=== PATIENT | male | born 1985 | race Caucasian/White ===

== ENCOUNTER 2021-05-06 14:25 | Emergency (ER) | payer BC, SELFPAY ==
[2021-05-06 14:40] VITALS: BP 134/76; PULSE 93; RESP 18; TEMP 37.1; O2SAT 99
--- NOTE | 2021-05-06 14:46 | ED.URI ---
HPI - URI/Sore Throat General Chief Complaint: Upper Respiratory Infection Stated Complaint: cold symptoms Time Seen by Provider: 05/06/21 14:50 Source: patient and RN notes reviewed Mode of arrival: ambulatory Limitations: no limitations History of Present Illness HPI Narrative: Lenin is a 36-year-old male patient who ambulated into the [facility]. Patient states he has a 6-day history of cough, sinus congestion, scratchy throat, and occasional ear pain. Patient has been taking Sudafed and Flonase at home. Patient did have a rapid Covid test last night which was negative. Related Data Allergies Allergy/AdvReac Type Severity Reaction Status Date / Time No Known Allergies Allergy Unknown Verified 05/06/21 14:54 Review of Systems Review of Systems: CONSTITUTIONAL: Denies body aches, fever, chills, or sweats. EYES: Denies visual changes, redness, or discharge. ENT: + rhinorrhea, + congestion, denies sore throat, + otalgia. CARDIOVASCULAR: Denies chest pain, palpitations, or edema. RESPIRATORY: Denies cough or dyspnea. GASTROINTESTINAL: Denies abdominal pain, nausea, vomiting, or diarrhea. GENITOURINARY: Denies dysuria or hematuria. SKIN: Denies rash, itching, or wounds. MUSCULOSKELETAL: Denies back pain, joint pain, or myalgia. NEUROLOGIC: Denies headache, numbness, tingling, or weakness. PSYCH: Denies depression or anxiety. All systems reviewed & are unremarkable except as noted in HPI and below PMFSH Social History Social History Smoking status: Never smoker Comments At time of signature, I have reviewed and agree with nursing past medical, surgical, social and family history unless otherwise noted. Please see nursing chart for further information. There is no relevant family history pertinent to the presenting complaint Exam Narrative: GENERAL: Well-appearing, well-nourished, and in no acute distress. HEAD: Normocephalic, atraumatic. EYES: EOMI. No redness or drainage. Conjunctivae normal. ENT: Mucous membranes pink and moist. Nasal membranes erythemic with clear drainage. Tympanic membranes are dull with moderate bulging. No erythema noted. Posterior pharynx is erythemic without edema and moderate postnasal drainage noted. No exudate nares clear. Uvula midline. NECK: Normal AROM. Supple. No lymphadenopathy. CHEST: No respiratory distress. Clear to auscultation. HEART: Regular rate and rhythm. No murmur appreciated. MUSCULOSKELETAL: No bony tenderness. EXTREMITIES: Normal range of motion. No edema. SKIN: Warm, dry, no rash. Capillary refill normal. Normal skin turgor. NEURO: No focal deficits. Alert and oriented x3. Gait steady. PSYCH: Normal affect. No signs of depression or anxiety. Course Vital Signs Vital signs: Vital Signs Temperature 37.1 C 05/06/21 14:40 Pulse Rate 93 05/06/21 14:40 Respiratory Rate 18 05/06/21 14:40 Blood Pressure 134/76 05/06/21 14:40 Pulse Oximetry 99 05/06/21 14:40 Temperature 37.1 C 05/06/21 14:40 Pulse Rate 93 05/06/21 14:40 Respiratory Rate 18 05/06/21 14:40 Blood Pressure 134/76 05/06/21 14:40 Pulse Oximetry 99 05/06/21 14:40 Reviewed. Pt has been instructed to follow up with his PCP regarding his elevated blood pressure today. MDM - URI/Sore Throat MDM Narrative Medical decision making narrative: Patient has had symptoms for only 6 days. Patient had a negative rapid Covid test last night. Patient will be treated for nasopharyngitis, patient to continue his Sudafed daily instead of just occasionally. Patient to continue his Flonase. Patient will be given a 5-day course of prednisone. Patient to increase his fluids. Patient to follow-up with his primary care physician in 3 to 5 days for continued symptoms. Differential Diagnosis Differential diagnosis: Likely upper respiratory infection, otitis media, viral infection and pharyngitis Medical Records Attestation: I
== END 2021-05-06 15:16 | disposition home or self-care (01) ==
PROVIDERS: Emergency Provider Nurse Practitioner Family
DX: J00 Acute nasopharyngitis [common cold] (principal)
CPT/HCPCS: 99213; A9270; G0463

== ENCOUNTER 2021-06-01 18:25 | Emergency (ER) | payer BC, SELFPAY ==
[2021-06-01 18:31] VITALS: BP 147/90; PULSE 94; RESP 18; TEMP 37.1; O2SAT 98
--- NOTE | 2021-06-01 18:38 | ED.EYEPROB ---
HPI - Eye Problem General Chief complaint: Eye Problems Stated complaint: Rt Eye Pain Time Seen by Provider: 06/01/21 18:30 Source: patient and RN notes reviewed Mode of arrival: ambulatory Limitations: no limitations History of Present Illness HPI Narrative: Lenin is a 36-year-old male patient who ambulated into the [facility]. Patient states about 30 minutes ago his toddler son scratched him in the right eye. Patient complains of pain and redness and inability keep his eye open. Patient has not taking any [id number] medications for this patient has no health problems and takes no daily medications. chief complaint: eye pain Related Data Allergies Allergy/AdvReac Type Severity Reaction Status Date / Time No Known Allergies Allergy Unknown Verified 06/01/21 18:37 Review of Systems Review of Systems: CONSTITUTIONAL: Denies body aches, fever, chills, or sweats. EYES: Denies visual changes or discharge.+ right eye pain and redness ENT: Denies rhinorrhea, congestion, sore throat, or otalgia. CARDIOVASCULAR: Denies chest pain, palpitations, or edema. RESPIRATORY: Denies cough or dyspnea. GASTROINTESTINAL: Denies abdominal pain, nausea, vomiting, or diarrhea. GENITOURINARY: Denies dysuria or hematuria. SKIN: Denies rash, itching, or wounds. MUSCULOSKELETAL: Denies back pain, joint pain, or myalgia. NEUROLOGIC: Denies headache, numbness, tingling, or weakness. PSYCH: Denies depression or anxiety. All systems reviewed & are unremarkable except as noted in HPI and below PMFSH Social History Social History Smoking status: Never smoker Comments At time of signature, I have reviewed and agree with nursing past medical, surgical, social and family history unless otherwise noted. Please see nursing chart for further information. There is no relevant family history pertinent to the presenting complaint Exam Narrative: GENERAL: Well-appearing, well-nourished, and in no acute distress. HEAD: Normocephalic, atraumatic. EYES: EOMI. right eye is erythemic, positive photophobia, corneal abrasion at the 9 PM location; conjunctivae normal. ENT: Mucous membranes pink and moist. Nares clear. No rhinorrhea. NECK: Normal AROM. Supple. No lymphadenopathy. CHEST: No respiratory distress. MUSCULOSKELETAL: No bony tenderness. EXTREMITIES: Normal range of motion. No edema. SKIN: Warm, dry, no rash. Capillary refill normal. Normal skin turgor. NEURO: No focal deficits. Alert and oriented x3. Gait steady. PSYCH: Normal affect. No signs of depression or anxiety. Course Vital Signs Vital signs: Vital Signs Temperature 37.1 C 06/01/21 18:31 Pulse Rate 94 06/01/21 18:31 Respiratory Rate 18 06/01/21 18:31 Blood Pressure 147/90 H 06/01/21 18:31 Pulse Oximetry 98 06/01/21 18:31 Temperature 37.1 C 06/01/21 18:31 Pulse Rate 94 06/01/21 18:31 Respiratory Rate 18 06/01/21 18:31 Blood Pressure 147/90 H 06/01/21 18:31 Pulse Oximetry 98 06/01/21 18:31 Reviewed. Pt has been instructed to follow up with his PCP regarding his elevated blood pressure today. Procedures Other Procedure Procedure 1: Other Procedure: Right eye eye was anesthetized with 1 drop of tetracaine and anesthesia was achieved. The eye was flushed with eye wash. Lid was inverted and examined. Moistened Qtip was used to sweep underneath the upper eyelid with no foreign bodies resulting. Cornea was dyed with fluorescein and no abrasions or ulcerations were noted. Pt tolerated procedure well. MDM - Eye Problem MDM Narrative Medical decision making narrative: Patient has an abrasion to the 9 o'clock position on his right eye. Differential Diagnosis Differential diagnosis: Likely corneal abrasion, conjunctivitis, periorbital cellulitis and corneal ulcer Discharge Plan Discharge Clinical Impression: Corneal abrasion Patient Disposition: Home, Self-Care
== END 2021-06-01 18:45 | disposition home or self-care (01) ==
PROVIDERS: Emergency Provider Nurse Practitioner Family
DX: S05.01XA Injury of conjunctiva and corneal abrasion without foreign body, right eye, initial encounter (principal); W51.XXXA Accidental striking against or bumped into by another person, initial encounter
CPT/HCPCS: 99213; G0463

== ENCOUNTER 2021-12-03 17:53 | Emergency (ER) | payer BC, SELFPAY ==
[2021-12-03 18:16] VITALS: BP 119/85; PULSE 94; RESP 18; TEMP 38; O2SAT 99
--- NOTE | 2021-12-03 18:39 | ED.URI ---
HPI - URI/Sore Throat General Chief Complaint: Upper Respiratory Infection Stated Complaint: Rt Ear Irritation,Congestion,Body Aches Time Seen by Provider: 12/03/21 18:35 History of Present Illness HPI Narrative: Lenin Kasper is a 36 yo male with no PMH comes to [facility] with a fever and not feeling well for most of the week. His young preschool daughter started getting sick last Monday. States that he is able to take fluids adequately and can eat some as far as swallowing but does not feel like eating. Has had a temperature for the last 24 hours Related Data Allergies Allergy/AdvReac Type Severity Reaction Status Date / Time No Known Allergies Allergy Unknown Verified 12/03/21 18:17 Review of Systems Review of Systems: CONSTITUTIONAL: Has fever, chills, sweats. EYES: Denies visual changes, redness, discharge. ENT: Denies rhinorrhea, congestion, has sore throat with gravelly throat otalgia. CARDIOVASCULAR: Denies chest pain, palpitations, edema. RESPIRATORY: Denies dyspnea, wheezing, cough GASTROINTESTINAL: Denies abdominal pain, nausea, vomiting, diarrhea. GENITOURINARY: Denies dysuria, hematuria, abnormal discharge SKIN: Denies rash or itching. NEUROLOGIC: Denies numbness, or focal weakness. PSYCHIATRIC: Denies anxiety or depression. [facility] Past Medical History Medical History (Updated 12/03/21 @ 18:58 by Nicolasa Fowler CNP) No acute medical problems Social History Social History Smoking status: Never smoker Comments At time of signature, I agree with nursing past medical, surgical, social and family history. There is no relevant family history pertinent to the presenting complaint. Exam Narrative: GENERAL: This is a well-nourished, well-developed patient, in mild distress. Patient currently has fever HEAD: normocephalic, atraumatic. EYES: Sclera clear/white. Vision is grossly intact. EARS: External ears normal, right erythema of ear canal-hearing grossly intact. NOSE: External nose normal without nasal discharge, nares without redness, no rhinorrhea. THROAT: Mucous membranes moist, posterior pharynx erythema with mild amount exudate NECK: Neck supple, non-tender CARDIOVASCULAR: Regular rate and rhythm without murmurs, gallops, or rubs. RESPIRATORY: Clear to auscultation. Breath sounds equal bilaterally. No wheezes, rales, or rhonchi. GASTROINTESTINAL: Not done SKIN: warm, intact with no suspicious lesions or rash, good texture and turgor. NEURO: awake, alert, and oriented to person, place and time. There were no obvious focal neurologic abnormalities. Steady gait EXTREMITIES: Normal range of motion. BACK: Nontender without deformity Course Course Emergency Course: Patient here with fever and not feeling well Strep test positive Flu test negative Started on amoxicillin 875 mg twice daily for strep throat and for right ear infection Level of Care: Express Care Visit Vital Signs Vital signs: Vital Signs Temperature 100.4 F H 12/03/21 18:16 Pulse Rate 94 12/03/21 18:16 Respiratory Rate 18 12/03/21 18:16 Blood Pressure 119/85 12/03/21 18:16 Pulse Oximetry 99 12/03/21 18:16 Oxygen Delivery Room Air 12/03/21 18:16 Temperature 100.4 F H 12/03/21 18:16 Pulse Rate 94 12/03/21 18:16 Respiratory Rate 18 12/03/21 18:16 Blood Pressure 119/85 12/03/21 18:16 Pulse Oximetry 99 12/03/21 18:16 Oxygen Delivery Room Air 12/03/21 18:16 MDM - URI/Sore Throat Differential Diagnosis Differential diagnosis: Likely upper respiratory infection, otitis media, influenza, pharyngitis and other Lab Data Labs: Influenza A Screen Negative Reference Range: Negative Influenza B Screen Negative Reference Range: Negative Strep Screen Positive Group A Strep
== END 2021-12-03 18:50 | disposition home or self-care (01) ==
PROVIDERS: Emergency Provider Nurse Practitioner
DX: H92.01 Otalgia, right ear (principal); J02.0 Streptococcal pharyngitis
CPT/HCPCS: 87804; 87880; 99213; G0463